=== PATIENT | female | born 1995 | race Two or more races ===

== ENCOUNTER 2021-12-21 06:08 | Emergency (ER) | payer SELFPAY ==
[~2021-12-21] VITALS: Ht 162.6 cm; Wt 86.2 kg
[2021-12-21 06:22] VITALS: BP 146/76
[2021-12-21] MEDS ORDERED: ACETAMINOPHEN 325 MG TAB PO ONE (06:45)
[2021-12-21] MEDS ORDERED: ACET-1158 PO (07:57)
[2021-12-21] MEDS ORDERED: CYCL-837 PO (07:57)
== END 2021-12-21 08:15 | disposition home or self-care (01) ==
LOC: EDBD 06:08 → ER 06:08
DX: S16.1XXA Strain of muscle, fascia and tendon at neck level, initial encounter (principal); S29.012A Strain of muscle and tendon of back wall of thorax, initial encounter; V43.52XA Car driver injured in collision with other type car in traffic accident, initial encounter; Y93.89 Activity, other specified; Y92.410 Unspecified street and highway as the place of occurrence of the external cause; Y99.8 Other external cause status
CPT/HCPCS: 72040; 72070; 93005